=== PATIENT | male | born 1950 | race Caucasian/White ===

== ENCOUNTER 2021-06-09 18:32 | Inpatient (IN) | payer MEDICARE ==
[2021-06-09 19:59] VITALS: BMI 27.5
[2021-06-09] MEDS ORDERED: Albuterol 200 PUFF (6.7GM INHALER) INH PRN (20:51)
[2021-06-09] MEDS ORDERED: Non-Formulary Item 1 EACH (Albuterol Sulfate [Albuterol Sulfate Hfa] 8.5 GM Hfa.Aer.Ad) IH PRN (21:20)
[2021-06-09] MEDS ORDERED: Bisacodyl 5 MG TAB PO PRN (21:21)
[2021-06-09] MEDS ORDERED: Senokot S 8.6-50 MG TAB PO PRN (21:21)
[2021-06-09] MEDS ORDERED: Bisacodyl 10 MG SUPP PR PRN (21:21)
[2021-06-09] MEDS ORDERED: Acetaminophen 325 MG TAB PO PRN (21:21)
[2021-06-09] MEDS ORDERED: Benzonatate 100 MG CAP PO PRN (21:26)
[2021-06-09] MEDS ORDERED: METHYLPREDNISOLONE 4 MG PO SCH (21:30)
[2021-06-09] MEDS: Doxycycline 100 MG CAP PO SCH (21:33)
[2021-06-09] MEDS: Latanoprost 0.005% Ophth Soln 2.5 ml Bottle EA EYE SCH (21:33)
[2021-06-10] MEDS ORDERED: Mometasone/Formoterol 200/5 60 PUFF INH SCH (07:00)
[2021-06-10] MEDS ORDERED: INHALE EA NARE SCH (09:00)
[2021-06-10] MEDS ORDERED: DEXAMETHASONE 2 MG PO SCH (09:00)
[2021-06-10] MEDS ORDERED: IPRATROPIUM 0.06% EA NARE SCH (09:00)
[2021-06-10] MEDS: NIFEdipine XL 30 MG TAB PO SCH (09:18)
[2021-06-10] MEDS: Mometasone/Formoterol 200/5 60 PUFF INH SCH ×2 (09:19→20:50)
[2021-06-10] MEDS: Enoxaparin Sodium 40 MG/0.4 ML SYRINGE SC SCH (09:20)
[2021-06-10] MEDS: Doxycycline 100 MG CAP PO SCH ×2 (09:54→20:50)
[2021-06-10] MEDS: Latanoprost 0.005% Ophth Soln 2.5 ml Bottle EA EYE SCH (20:50)
[2021-06-11 06:34] LABS: Hemoglobin 14.1 g/dL (14.0-18.0); Platelet Count 193 thou/uL (130-400)
[2021-06-11] MEDS: NIFEdipine XL 30 MG TAB PO SCH (09:17)
[2021-06-11] MEDS: Enoxaparin Sodium 40 MG/0.4 ML SYRINGE SC SCH (09:18)
[2021-06-11] MEDS: Doxycycline 100 MG CAP PO SCH ×2 (09:19→20:59)
[2021-06-11] MEDS: Mometasone/Formoterol 200/5 60 PUFF INH SCH ×2 (09:25→21:00)
[2021-06-11] MEDS: Latanoprost 0.005% Ophth Soln 2.5 ml Bottle EA EYE SCH (20:59)
[2021-06-12 06:34] VITALS: BP 102/66; TEMP 98.2
[2021-06-12] MEDS: Doxycycline 100 MG CAP PO SCH (09:03)
[2021-06-12] MEDS: Enoxaparin Sodium 40 MG/0.4 ML SYRINGE SC SCH (09:04)
[2021-06-12] MEDS: Mometasone/Formoterol 200/5 60 PUFF INH SCH (09:06)
== END 2021-06-12 12:30 | disposition home or self-care (01) | DRG 177 ==
LOC: BURMED 18:32
PROVIDERS: ADMIT Family Medicine; ATTEND Family Medicine
PROC: 8E0ZXY6 Isolation (ICD-10-PCS; principal; 2021-06-09)
DX: U07.1 COVID-19 (principal); J12.82 Pneumonia due to coronavirus disease 2019; G47.33 Obstructive sleep apnea (adult) (pediatric); T38.0X5A Adverse effect of glucocorticoids and synthetic analogues, initial encounter; R03.0 Elevated blood-pressure reading, without diagnosis of hypertension; Z79.899 Other long term (current) drug therapy; Z79.51 Long term (current) use of inhaled steroids; Z99.89 Dependence on other enabling machines and devices
CPT/HCPCS: 36415; 82565; 85014; 85018; 85049; 94664; J1650